=== PATIENT | female | born 1980 | race Caucasian/White ===

== ENCOUNTER 2020-10-19 05:47 | Inpatient (IN) | payer OTHER ==
[~2020-10-19] VITALS: Ht 165.1 cm; Wt 84.4 kg
[2020-10-19] MEDS ORDERED: PRENATAL VITAM1 EAC4 PO (06:51)
[2020-10-19 07:01] LABS: HEMOGLOBIN 12.8 gm/dl (12.3-15.3); RED BLOOD COUNT 4.51 M/UL (4.00-5.10); WHITE BLOOD COUNT 9.9 K/UL (4.5-11.0)
[2020-10-20 06:18] LABS: HEMOGLOBIN 11.8 gm/dl (12.3-15.3)
[2020-10-20] MEDS ORDERED: COLACE100 MG PO (12:02)
[2020-10-20] MEDS ORDERED: IBUPROFEN800 MG PO (12:02)
== END 2020-10-20 16:41 | disposition home or self-care (01) | DRG 805 ==
LOC: OB 05:47
PROVIDERS: Obstetrics & Gynecology; ADMIT Obstetrics & Gynecology
PROC: 10E0XZZ Delivery of Products of Conception, External Approach (ICD-10-PCS; principal; 2020-10-19)
PROC: 3E033VJ Introduction of Other Hormone into Peripheral Vein, Percutaneous Approach (ICD-10-PCS; 2020-10-19)
PROC: 10907ZC Drainage of Amniotic Fluid, Therapeutic from Products of Conception, Via Natural or Artificial Opening (ICD-10-PCS; 2020-10-19)
PROC: 3E0234Z Introduction of Serum, Toxoid and Vaccine into Muscle, Percutaneous Approach (ICD-10-PCS; 2020-10-20)
DX: O69.81X0 Labor and delivery complicated by cord around neck, without compression, not applicable or unspecified (principal); U07.1 COVID-19; Z37.0 Single live birth; O98.52 Other viral diseases complicating childbirth; Z3A.39 39 weeks gestation of pregnancy; Z23 Encounter for immunization; O75.89 Other specified complications of labor and delivery; G43.909 Migraine, unspecified, not intractable, without status migrainosus; Z87.442 Personal history of urinary calculi; O99.892 Other specified diseases and conditions complicating childbirth; N28.9 Disorder of kidney and ureter, unspecified; O99.334 Smoking (tobacco) complicating childbirth; F17.210 Nicotine dependence, cigarettes, uncomplicated
CPT/HCPCS: 36415; 51702; 81001; 85014; 85018; 85025; 90715; J2210; J2590; J7120; U0002